=== PATIENT | male | born 1960 | race Caucasian/White ===

== ENCOUNTER 2016-09-21 06:25 | Day surgery (SDC) | payer MEDICAID ==
[2016-09-19 11:21] VITALS: BMI 31.1
[2016-09-21 06:44] VITALS: RESP 18; TEMP 96.4
[2016-09-21] MEDS ORDERED: LACTATED RINGERS 1,000 ML IV ONE (07:00)
[2016-09-21] MEDS ORDERED: LIDOCAINE 1% 20 ML VIAL (10MG/ML) FOR IV START INTRADERMA ONE (07:00)
[2016-09-21] MEDS ORDERED: IOHEXOL 180 MG/ML 1 ML ML ONE (07:15)
[2016-09-21] MEDS ORDERED: fentaNYL (PF) 50 MCG/ML 2 ML AMP ONE (07:15)
[2016-09-21] MEDS ORDERED: MIDAZOLAM 2 MG/2 ML VIAL ONE (07:15)
[2016-09-21] MEDS ORDERED: TRIAMCINOLONE ACETONIDE 40 MG/ML 1 ML VIAL ONE (07:15)
[2016-09-21] MEDS ORDERED: LACTATED RINGERS 1,000 ML IV SCH (07:30)
[2016-09-21] MEDS ORDERED: IV FLUID CONTINUATION 1,000 ML IV ONE (07:44)
[2016-09-21 08:14] VITALS: BP 130/84; PULSE 64
--- NOTE | 2016-09-21 09:02 | P.PCN ---
Date of Procedure: 09/21/16 Anesthesia: MAC Surgeon: David Penn Pathology: none sent Condition: stable Disposition: PACU Description of Procedure: PREOPERATIVE DIAGNOSIS: 1-Lumbar radiculitis. POSTOPERATIVE DIAGNOSIS: 1-Lumbar radiculitis. PROCEDURE 1. Lumbar epidural steroid injection under fluoroscopic guidance at the L5-S1 level. 2. Lumbar epidurogram. ANESTHESIA: Local with 1% lidocaine; IV sedation with Versed/fentanyl. EBL: Minimal PROCEDURE INDICATION: The patient with low back pain and radiculitis symptoms unresponsive to conservative treatment. Fluoroscopy was used to optimize visualization of the needle placement and to maximize safety. Patient presents for LESI #2 in series today, no use of blood thinners. PROCEDURE DESCRIPTION / TECHNIQUE: The patient was seen and identified in the preoperative area. Risks, benefits, complications, and alternatives were discussed with the patient, including but not limited to bleeding, infection, nerve damage, allergic reactions to medications, and incomplete pain relief. The patient agreed to proceed with the procedure and signed the consent after all questions were answered. IV was started, and vital signs were stable. Patient was taken to the OR and time out was completed to confirm patient position, procedure, laterality of pain, and allergies. The patient was placed in the prone position on procedure table and a pillow was placed under the abdomen to reduce lumbar lordosis. The lumbosacral area was prepped and draped in the usual sterile fashion. Critical pause was taken. Vital signs were closely monitored during the procedure. Conscious sedation was used during the procedure to decrease patients anxiety. Using anterior-posterior fluoroscopy, the L5-S1 interlaminar space was identified and the skin over this site was marked and then infiltrated with 1% lidocaine subcutaneously in a left paramedian fashion. Subsequently, a 20-gauge 3.5" Tuohy epidural needle was inserted and advanced toward the epidural space using the Loss of resistance technique and guided by AP and lateral fluoroscopy. The correct needle position in the epidural space was verified with the injection of 2 mL of the water soluble contrast dye Omnipaque 300 contrast and observing an excellent epidurogram with the epidural spread of the dye, after negative aspiration for blood and CSF and in the absence of paresthesias. Again after negative aspiration, a 8 ml mixture containing 80 mg of Kenalog and 4 ml of preservative free Normal Saline, and 2 ml of preservative free lidocaine 1% solution was injected and a washout of epidurogram was seen. Needle was withdrawn intact, skin was cleansed, and bandages were applied. COMPLICATIONS: None COMMENTS: DISPOSITION / PLANS: The patient was placed in a supine position and transferred to the recovery area in a stable condition for observation. There was no evidence of lower extremity motor or sensory deficit after the procedure. Patient was discharged from the recovery room after meeting discharge criteria. Home discharge instructions were given to the patient by the staff. The patient was reexamined prior to discharge. The patient will schedule a follow up LESI in 8-12 weeks.
--- NOTE | 2016-09-21 09:20 | FL ---
EXAMINATION TYPE: FL guided pain mgmt statistic DATE OF EXAM: 09/21/2016 7:33 AM COMPARISON: NONE HISTORY: Back pain Fluoroscopy support supplied to the referring clinician. See dictated report from anesthesia, 6 seco nds fluoroscopy time, 2 intraoperative C-arm images document the procedure
== END 2016-09-21 08:22 | disposition home or self-care (01) ==
LOC: ORPAIN 06:25
PROVIDERS: ATTEND Anesthesiology
DX: G89.29 Other chronic pain (principal); M54.16 Radiculopathy, lumbar region; F41.9 Anxiety disorder, unspecified; Z79.82 Long term (current) use of aspirin; Z79.1 Long term (current) use of non-steroidal anti-inflammatories (NSAID); Z79.899 Other long term (current) drug therapy
CPT/HCPCS: 62323; J2250; J3301; Q9965; J3010

== ENCOUNTER → 2016-11-07 | Outpatient (CLI) | payer MEDICAID ==
[2016-11-07 08:12] LABS: EKG EKG PERFORMED
[2016-11-07 08:35] LABS: Basophils # (A) 0.1 k/uL (0-0.2); Basophils % (A) 1 %; CH 29.7; CHCM 34.2; Eosinophils # (A) 0.2 k/uL (0-0.7); Eosinophils % (A) 3 %; HDW 2.75; HGB 15.9 gm/dL (13.0-17.5); Luc # (Auto) 0.16; Luc % (Auto) 2; Lymphocytes # (A) 1.4 k/uL (1.0-4.8); Lymphocytes % (A) 21 %; MCH 28.9 pg (25.0-35.0); MCHC 33.1 g/dL (31.0-37.0); MCV 87.1 fL (80.0-100.0); Mean Platelet Volume 6.2; Monocytes # (A) 0.6 k/uL (0-1.0); Monocytes % (A) 8 %; Neutrophils # (A) 4.6 k/uL (1.3-7.7); Neutrophils % (A) 65 %; RBC 5.51 m/uL (4.30-5.90); WBC (Perox) 6.92
[2016-11-07 09:19] LABS: Hemoglobin A1C 5.1 % (4.2-6.1)
--- NOTE | 2016-11-07 09:24 | XR ---
EXAMINATION TYPE: XR chest 2V DATE OF EXAM: 11/07/2016 8:22 AM COMPARISON: NONE TECHNIQUE: PA and lateral views submitted. HISTORY: Presurgical FINDINGS: The lungs are clear and there is no pneumothorax, pleural effusion, or focal pneumonia. Arthropathy of the shoulders noted. IMPRESSION: 1. No acute process.
[2016-11-07 11:14] LABS: ALT 38 U/L (21-72); AST 27 U/L (17-59); Alkaline Phosphatase 55 U/L (38-126); Anion Gap 10 mmol/L; Blood Urea Nitrogen 17 mg/dL (9-20); Calcium 9.9 mg/dL (8.4-10.2); Carbon Dioxide 25 mmol/L (22-30); Chloride 106 mmol/L (98-107); Cholesterol 229 mg/dL (<200); Glucose 111 mg/dL (74-99); HDL Cholesterol 37 mg/dL (40-60); Non-African American GFR(MDRD) >60 (>60 ml/min/1.73 sqM); Potassium 4.6 mmol/L (3.5-5.1); Sodium 141 mmol/L (137-145); Total Bilirubin 0.6 mg/dL (0.2-1.3); Triglycerides 231 mg/dL (<150)
[2016-11-07 11:35] LABS: Prostate Specific Antigen 1.14 ng/mL (0.00-4.00)
== END | disposition home or self-care (01) ==
LOC: LABWHC1 07:46
PROVIDERS: ATTEND Internal Medicine Geriatric Medicine
DX: R05 Cough (principal); R00.1 Bradycardia, unspecified; N40.0 Benign prostatic hyperplasia without lower urinary tract symptoms; E78.00 Pure hypercholesterolemia, unspecified; E66.8 Other obesity
CPT/HCPCS: 36415; 71020; 80053; 80061; 83036; 84153; 84439; 84443; 85025; 93005

== ENCOUNTER → 2016-11-16 | Outpatient (CLI) | payer MEDICAID ==
[2016-11-16 08:30] LABS: Appearance,Urine Clear (Clear); Bilirubin,Urine Negative (Negative); Glucose,Urine (UA) Negative (Negative); Ketones,Urine Negative (Negative); Leukocyte Esterase,Urine Negative (Negative); Nitrite,Urine Negative (Negative); PH, Urine 5.5 (5.0-8.0); Protein,Urine Negative (Negative); Specific Gravity,Urine 1.018 (1.001-1.035); UA Billing (MACRO vs. MICRO) CHEM; Urobilinogen,Urine <2.0 mg/dL (<2.0)
[2016-11-16 08:31] LABS: Basophils # (A) 0.1 k/uL (0-0.2); Basophils % (A) 1 %; CH 29.6; CHCM 33.4; Eosinophils # (A) 0.3 k/uL (0-0.7); Eosinophils % (A) 4 %; HCT 47.7 % (39.0-53.0); HDW 2.71; HGB 15.3 gm/dL (13.0-17.5); Luc # (Auto) 0.16; Luc % (Auto) 3; Lymphocytes # (A) 1.2 k/uL (1.0-4.8); Lymphocytes % (A) 19 %; MCH 28.6 pg (25.0-35.0); MCHC 32.1 g/dL (31.0-37.0); Mean Platelet Volume 6.3; Monocytes # (A) 0.5 k/uL (0-1.0); Monocytes % (A) 7 %; Neutrophils # (A) 4.2 k/uL (1.3-7.7); Neutrophils % (A) 66 %; RBC 5.36 m/uL (4.30-5.90); RDW 13.1 % (11.5-15.5); WBC 6.4 k/uL (3.8-10.6)
[2016-11-16 08:47] LABS: INR 1.1 (<1.1); Partial Thromboplastin Time 23.7 sec (22.0-30.0); Prothrombin Time 10.8 sec (9.0-12.0)
[2016-11-16 09:12] LABS: Anion Gap 11 mmol/L; Blood Urea Nitrogen 16 mg/dL (9-20); Carbon Dioxide 24 mmol/L (22-30); Chloride 107 mmol/L (98-107); Non-African American GFR(MDRD) >60 (>60 ml/min/1.73 sqM); Potassium 4.7 mmol/L (3.5-5.1); Sodium 142 mmol/L (137-145)
== END ==
LOC: LABWHC1 07:45
PROVIDERS: ATTEND Specialist
DX: M48.06 Spinal stenosis, lumbar region (principal); M51.36 Other intervertebral disc degeneration, lumbar region
CPT/HCPCS: 36415; 80051; 81003; 82565; 84520; 85025; 85610; 85730; 87070

== ENCOUNTER → 2017-08-31 | Outpatient (CLI) | payer MEDICAID ==
--- NOTE | 2017-08-31 17:54 | CT ---
EXAMINATION TYPE: CT chest wo con DATE OF EXAM: 08/31/2017 COMPARISON: Chest radiograph dated 11/07/2016 HISTORY: Chronic cough CT DLP: 992.3 mGycm. Automated Exposure Control for Dose Reduction was Utilized. TECHNIQUE: CT scan of the thorax is performed without IV contrast in the supine and prone positions per the high-resolution protocol.. FINDINGS: LUNGS: There are moderate centrilobular and paraseptal emphysematous changes. Reticular pattern of th e anterior right upper lobe is seen as interstitial thickening. Evaluation for pulmonary nodule is smith boptimal given the noncontiguous slices. No evidence of pulmonary mass. Minimal bibasilar subsegmenta l atelectasis is noted that is dependent in both supine and prone positions. No peribronchial cuffing or bronchiectasis is present. Tracheobronchial tree is patent. No focal cons olidation, pleural effusion or pneumothorax. No air trapping is noted. On the prone imaging basilar r eticular patchy and early honeycombing is identified posteriorly and nondependently suggesting early fibrosis. MEDIASTINUM: Lack of IV contrast is noted to limit evaluation for mediastinal and especially hilar ad enopathy. The main pulmonary artery is mildly enlarged measuring 3.1 cm, which can be seen in pulmona ry arterial hypertension. Mild coronary artery calcifications are present of the left circumflex and left main as well as left anterior descending coronary arteries. There are no definitive greater than 1 cm hilar or mediastinal lymph nodes. No cardiomegaly or pericardial effusion is seen. OTHER: Multiple low attenuated hepatic lesions are seen that are fluid attenuated and likely represen t hepatic cysts but are incompletely characterized. The thyroid gland is grossly enlarged with subste rnal extension. Evaluation of nodules is suboptimal on this exam. Osseous structures appear grossly i ntact with mild degenerative changes of the thoracic spine. IMPRESSION: 1. Moderate centrilobular and paraseptal emphysematous changes with findings suggestive of early fibr osis. 2. No focal consolidation, pleural effusion or pneumothorax. Evaluation for pulmonary nodule is limit ed given the exam technique. 3. Multiple probable hepatic cysts, fluid attenuated. 4. Mild enlargement of the main pulmonary artery that may clinically correlate with pulmonary arteria l hypertension. 5. Mild coronary artery calcifications, a marker for coronary artery disease.
== END | disposition home or self-care (01) ==
LOC: RADCTMAIN 16:05
PROVIDERS: ATTEND Internal Medicine Geriatric Medicine
DX: J43.2 Centrilobular emphysema (principal); I77.89 Other specified disorders of arteries and arterioles; I25.10 Atherosclerotic heart disease of native coronary artery without angina pectoris
CPT/HCPCS: 71250

== ENCOUNTER → 2017-09-13 | Outpatient (CLI) | payer MEDICAID ==
--- NOTE | 2017-09-13 11:16 | ECHOF ---
Referral Reason:J84.10 Pulmonary fibrosis MEASUREMENTS -------- HEIGHT: 182.9 cm WEIGHT: 106.6 kg BP: 126/75 IVSd: 1.3 cm (0.6 - 1.1) LVIDd: 5.1 cm (3.9 - 5.3) LVPWd: 1.5 cm (0.6 - 1.1) IVSs: 2.3 cm LVIDs: 2.1 cm LVPWs: 1.7 cm LAESV Index (A-L): 16.61 ml/m Ao Diam: 3.3 cm (2.0 - 3.7) AV Cusp: 2.4 cm (1.5 - 2.6) LA Diam: 3.7 cm (2.7 - 3.8) MV EXCURSION: 14.230 mm (> 18.000) MV EF SLOPE: 108 mm/s (70 - 150) EPSS: 0.7 cm MV E Ramirez: 0.68 m/s MV DecT: 200 ms MV A Ramirez: 0.56 m/s MV E/A Ratio: 1.22 RAP: 5.00 mmHg RVSP: 8.72 mmHg FINDINGS -------- Sinus rhythm. This was a technically good study. The left ventricular size is normal. There is mild concentric left ventricular hypertrophy. Overa ll left ventricular systolic function is normal with, an EF between 55 - 60 %. The right ventricle is normal in size and function. The left atrium is normal in size. The right atrium is normal in size. The aortic valve is trileaflet, and appears structurally normal. No aortic stenosis or regurgitation. There is trace mitral regurgitation. Trace tricuspid regurgitation present. The right ventricular systolic pressure, as measured by Dopp ler, is 8.72mmHg. Pulmonic valve appears structurally normal. The aortic root size is normal. Normal inferior vena cava with normal inspiratory collapse consistent with estimated right atrial pre ssure of 5 mmHg. The pericardium is normal. CONCLUSIONS -------- 1. Sinus rhythm. 2. This was a technically good study. 3. The left ventricular size is normal. 4. There is mild concentric left ventricular hypertrophy. 5. Overall left ventricular systolic function is normal with, an EF between 55 - 60 %. 6. The right ventricle is normal in size and function. 7. The left atrium is normal in size. 8. The right atrium is normal in size. 9. The aortic valve is trileaflet, and appears structurally normal. No aortic stenosis or regurgitati on. 10. There is trace mitral regurgitation. 11. Trace tricuspid regurgitation present. 12. The right ventricular systolic pressure, as measured by Doppler, is 8.72mmHg. 13. Pulmonic valve appears structurally normal. 14. The aortic root size is normal. 15. Normal inferior vena cava with normal inspiratory collapse consistent with estimated right atrial pressure of 5 mmHg. 16. The pericardium is normal. CURATOR OF PHOTOGRAPHY AND PRINTS: Karen Rashid RDCS
== END ==
LOC: RADECHMAIN 08:20
PROVIDERS: ATTEND Internal Medicine Geriatric Medicine
DX: I51.7 Cardiomegaly (principal)
CPT/HCPCS: 93306

== ENCOUNTER → 2017-10-15 | Outpatient (CLI) | payer MEDICAID ==
--- NOTE | 2017-10-15 11:30 | ECHOS ---
STRESS ECHOCARDIOGRAM INDICATIONS: Physical. MEDICATIONS: Aspirin. BASELINE HEART RATE: 83 BASELINE BLOOD PRESSURE: 108/51 MAXIMUM HEART RATE: 152 MAXIMUM BLOOD PRESSURE: 169/85 85% MPHR: 139 100% MPHR: 164 METS: 9.7 MAXIMUM STAGE REACHED: 3 TOTAL EXERCISE TIME: 8:00 CLINICAL INFORMATION: Baseline rhythm is a sinus mechanism, rate of 83, normal axis, intervals. normal echocardiogram. Baseline blood pressure 108/51 mmHg. Patient exercised on Hector protocol for 8 minutes, reaching a peak rate of 152 beats per minute which is equal to 92% of maximum predicted heart rate. Peak blood pressure 169/85 mmHg. Test was terminated due to fatigue. There were no chest pains and electrocardiographic monitoring revealed no evidence of diagnostic ischemic ST deviation. Occasional PVCs were noted. FINDINGS: Baseline echocardiogram revealed a normal wall thickening and motion. At peak exercise, there was normal wall motion and augmentation with no hypokinesis or dyskinesis. CONCLUSION: 1. Average exercise tolerance with normal electrocardiographic response to exercise and occasional premature ventricular contractions. 2. Normal stress echocardiogram with no evidence of stress-induced ischemia. MMODL / IJN: [id number] /
== END | disposition home or self-care (01) ==
LOC: RADNMMAIN 09:06
PROVIDERS: ATTEND Internal Medicine Geriatric Medicine
DX: I49.3 Ventricular premature depolarization (principal)
CPT/HCPCS: 93017; 93350

== ENCOUNTER → 2017-11-20 | Outpatient (CLI) | payer MEDICAID ==
--- NOTE | 2017-11-20 15:28 | XR ---
EXAMINATION TYPE: XR chest 2V DATE OF EXAM: 11/20/2017 COMPARISON: Prior chest x-ray 11/07/[address] 08/31/2017 HISTORY: Pulmonary fibrosis, annual physical TECHNIQUE: Frontal and lateral views of the chest are obtained. FINDINGS: Deviated trachea is again noted, mass effect noted as on previous exam. No evident airspac e disease, pneumothorax, or pleural effusion. Cardiomediastinal silhouette, pulmonary vascularity and rivka are stable. Prominent lung volumes are compatible with underlying COPD. IMPRESSION: No acute cardiopulmonary process. Substernal goiter. Emphysema.
== END | disposition home or self-care (01) ==
LOC: RADXRMAIN 12:29
PROVIDERS: ATTEND Internal Medicine Geriatric Medicine
DX: J43.9 Emphysema, unspecified (principal)
CPT/HCPCS: 71046

== ENCOUNTER 2018-11-04 11:26 | Emergency (ER) | payer MEDICAID ==
[2018-11-04 11:39] VITALS: RESP 18; TEMP 97.8
[2018-11-04] MEDS ORDERED: predniSONE 50 MG TAB PO STA (11:59)
[2018-11-04] MEDS ORDERED: KETOROLAC 60 MG/2 ML VIAL IM STA (11:59)
--- NOTE | 2018-11-04 12:32 | XR ---
EXAMINATION TYPE: XR lumbar spine 2 or 3V DATE OF EXAM: 11/04/2018 CLINICAL HISTORY: Low back pain after shoveling TECHNIQUE: Frontal and lateral images of the lumbar spine are obtained. COMPARISON: None FINDINGS: There are 5 lumbar type vertebral bodies identified. There is a dextroscoliotic curvature of the lumbar spine. Surgical fusion of the L3-L5 vertebral bodies is noted. There is a compression d eformity of the L4 vertebral body redemonstrated from the prior MRI 09/30/2015 with approximately 75% vertebral body height loss. The lumbar spine shows satisfactory alignment without evidence of acute f racture or dislocation. Vertebral body heights and disk space heights are within normal limits. Degen erative disc disease is also noted at T11-T12, partially visualized. The overlying soft tissue appea rs unremarkable. IMPRESSION: Chronic, degenerative and postsurgical changes of the lumbar spine. No acute fracture or dislocation is seen in the lumbar spine. Dextroscoliosis is also noted.
--- NOTE | 2018-11-04 12:43 | ED ---
General Adult HPI - General Chief complaint: Back Pain/Injury Stated complaint: back pain Time Seen by Provider: 11/04/18 11:42 Source: patient, RN notes reviewed, old records reviewed Mode of arrival: ambulatory Limitations: no limitations - History of Present Illness Initial comments: 58-year-old male patient past medical history of traumatic back injury as a teenager, s/p laminectomy and hardware fixation approximately 2 years ago presents to ED with exacerbation of chronic back pain. Patient states that he' ll clear throughout weekend, shoveling small, working in his house. Patient states that he felt as if she overdid it, isn't expressing pain in his right paralumbar region. Patient states that this is typical for him, denies any new concerning symptoms. Patient denies any loss of bowel or bladder control, saddle anesthesias, paresthesia, pain radiating down legs, no lower extremity weakness. Patient denies all other complaints. Systemic: Pt denies fatigue, myalgia, fever/chills, rash. Pt denies weakness, night sweats, weight loss. Neuro: Pt denies headache, visual disturbances, syncope or pre-syncope. HEENT: Pt denies ocular discharge or irritation, otalgia, rhinorrhea, pharyngitis or notable lymphadenopathy. Cardiopulmonary: Pt denies chest pain, SOB, heart palpitations, dyspnea on exertion. Abdominal/GI: Pt denies abdominal pain, n/v/d. : Pt denies dysuria, burning w/ urination, frequency/urgency. Denies new onset urinary or bowel incontinence. MSK: Pt denies myalgia, loss of strength or function in extremities. Neuro: Pt denies new onset weakness, paresthesias. - Related Data Home Medications Medication Instructions Recorded Confirmed Aspirin [Adult Low Dose Aspirin EC] 81 mg PO DAILY 11/09/15 11/04/18 Naproxen Sodium [Aleve] 440 mg PO DAILY PRN 11/09/15 11/04/18 Previous Rx's Medication Instructions Recorded Ibuprofen [Motrin] 600 mg PO Q6HR PRN #40 day 11/04/18 predniSONE 50 mg PO DAILY #4 tab 11/04/18 Allergies Allergy/AdvReac Type Severity Reaction Status Date / Time No Known Allergies Allergy Verified 11/04/18 12:17 Review of Systems ROS Statement: Those systems with pertinent positive or pertinent negative responses have been documented in the HPI. ROS Other: All systems not noted in ROS Statement are negative. Past Medical History Past Medical History: Osteoarthritis (OA) Additional Past Medical History / Comment(s): Hx back pain History of Any Multi-Drug Resistant Organisms: None Reported Past Surgical History: Orthopedic Surgery Additional Past Surgical History / Comment(s): Colonoscopy, RT KNEE SCOPE, PAIN CLINIC INJECTIONS Past Anesthesia/Blood Transfusion Reactions: No Reported Reaction, Family History of Problems w/ Anesthesia Additional Past Anesthesia/Blood Transfusion Reaction / Comment(s): States mother's heart stopped during a surgery she had. Past Psychological History: No Psychological Hx Reported Smoking Status: Former smoker Past Alcohol Use History: Occasional Past Drug Use History: None Reported - Past Family History Mother Family Medical History: No Reported History General Exam - General Exam Comments Initial Comments: Constitutional: NAD, AOX3, Pt has pleasant affect. HEENT: NC/AT, trachea midline, neck supple, no lymphadenopathy. Posterior pharynx non erythematous, without exudates. External ears appear normal, without discharge. Mucous membranes moist. Eyes PERRLA, EOM intact. There is no scleral icterus. No pallor noted. Cardiopulmonary: RRR, no murmurs, rubs or gallops, no JVD noted. Lungs CTAB in anterior and posterior garcia. No peripheral edema. Abdominal exam: Abdomen soft and non-distended. Abdomen non-tender to palpation in all 4 quadrants. Bowel sounds active in LLQ. No hepatosplenomegaly. No ecchymosis Neuro: CN II-XII grossly intact. No nuchal rigidity. MSK: Right paralumbar region mildly tender to palpation. Right straight leg raise positive. 5 out of 5 strength in psoas and quadriceps muscles. 2 out of 4 reflexes patellar and Achilles. Patient ambulatory without. No posterior calf tenderness bilaterally, homans sign negative bilaterally. Posterior tibialis and radial pulse +2 bilaterally. Sensation intact in upper and lower extremities. Full active ROM in upper and lower extremities, 5/5 stregnth. Limitations: no limitations Course Vital Signs 11/04/18 11/04/18 11:36 13:01 Temperature 97.8 F Pulse Rate 73 105 H Respiratory 18 Rate Blood Pressure 156/90 169/94 O2 Sat by Pulse 98 Oximetry Medical Decision Making - Medical Decision Making 58-year-old male patient past medical history of traumatic back injury as a teenager, s/p laminectomy and hardware fixation approximately 2 years ago presents to ED with exacerbation of chronic back pain. Patient states that he' ll clear throughout weekend, shoveling small, working in his house. Patient states that he felt as if she overdid it, isn't expressing pain in his right paralumbar region. Patient states that this is typical for him, denies any new concerning symptoms. Patient denies any loss of bowel or bladder control, saddle anesthesias, paresthesia, pain radiating down legs, no lower extremity weakness. Patient denies all other complaints. Patient vital signs stable, afebrile. Physical exam displayed: Right paralumbar region mildly tender to palpation. Right straight leg raise positive. 5 out of 5 strength in psoas and quadriceps muscles. 2 out of 4 reflexes patellar and Achilles. Patient ambulatory without. Plain film of the lumbar spine displayed chronic degenerative and post surgical changes lumbar spine. No acute fracture dislocation seen. These findings were explained to patient at length, The patient verbalizes understanding. Patient pain well-controlled with Toradol. Pt administered prednisone in ED. Pt to prednisone for 4 additional days, will use ibuprofen as needed for pain / inflammation. Patient to follow-up with PCP and orthopedic surgeon 1-2 days for continued evaluation. Case discussed with Dr. Feliciano. Disposition Clinical Impression: Chronic back pain, Lumbar back pain Disposition: HOME SELF-CARE Condition: Stable Instructions (If sedation given, give patient instructions): Acute Low Back Pain (ED), Chronic Back Pain (ED) Additional Instructions: Patient to adhere to previously discussed treatment plan and will take medication(s) as directed. Patient to follow up with PCP in 1-2 days. Patient to return to ED if symptoms do not improve. This follow up with primary care provider and surgeon in 1-2 days. Please return to ER if new signs symptoms develop or if condition worsens in any way. Prescriptions: Ibuprofen [Motrin] 600 mg PO Q6HR PRN #40 day PRN Reason: Pain predniSONE 50 mg PO DAILY #4 tab Is patient prescribed a controlled substance at d/c from ED?: No Referrals: Jesus Alberto Goncalves MD [Primary Care Provider] - 1-2 days
[2018-11-04 13:04] VITALS: BP 169/94; PULSE 105
== END 2018-11-04 13:05 | disposition home or self-care (01) ==
LOC: EC 11:26
DX: M54.5 Low back pain (principal); G89.29 Other chronic pain; M47.816 Spondylosis without myelopathy or radiculopathy, lumbar region; M19.90 Unspecified osteoarthritis, unspecified site; Z87.891 Personal history of nicotine dependence; Z79.82 Long term (current) use of aspirin; Z87.828 Personal history of other (healed) physical injury and trauma; Z96.698 Presence of other orthopedic joint implants
CPT/HCPCS: 99284; 96372; 72100; J1885; J7512

== ENCOUNTER → 2018-12-17 | Outpatient (CLI) | payer MEDICAID ==
--- NOTE | 2018-12-17 09:50 | XR ---
EXAM TYPE: LUMBAR SPINE X RAY SERIES COMPARISON: 11/04/2018 HISTORY: Post arthrodesis TECHNIQUE: 7 views are submitted including flexion and extension lateral views. FINDINGS: Postsurgical changes involving levels L3-L5 appears stable. Compression deformity of L4 is unchanged. Multilevel degenerative disc disease and hypertrophic changes are noted. Suspect foraminal encroachm ent L4-5 and L5-S1. Alignment appears stable in flexion and extension views. IMPRESSION: 1. Postsurgical changes are stable. Alignment appears stable in flexion and extension views.
== END | disposition home or self-care (01) ==
LOC: RADXRMAIN 09:15
PROVIDERS: ATTEND Specialist
DX: Z47.89 Encounter for other orthopedic aftercare (principal); Z98.1 Arthrodesis status
CPT/HCPCS: 72114

== ENCOUNTER → 2020-09-13 | Outpatient (CLI) | payer MEDICAID ==
--- NOTE | 2020-09-13 13:00 | MR ---
EXAMINATION TYPE: MR knee RT wo con DATE OF EXAM: 09/13/2020 COMPARISON: Outside radiographs 10/18/2019 HISTORY: 59-year-old male with right knee pain TECHNIQUE: Multiplanar, multisequence imaging of the right knee is performed without IV contrast. FINDINGS: ACL, PCL, MCL, and LCL complex are intact. Large irregular oblique tears involve the posterior horn and body of the medial meniscus. There is sl ight extrusion to the body of the medial meniscus. Mild superficial irregular cartilage loss along th e medial compartment. Areas a high-grade chondral defect along the posterior peripheral aspect of the medial femoral condyle measuring 7 mm wide and 8 mm AP. Marginal spurring is present. Cystic lesion within the posterior aspect of the tibial plateau near the posterior root of the medial meniscus measuring 1.5 cm likely intraosseous ganglion cyst. Lateral meniscus appears intact. Small areas of mild to moderate irregular cartilage loss along the m id weightbearing aspect of the lateral compartment. Marginal spurring is present. There is degenerative spurring in the patellofemoral compartment. Moderate irregular cartilage loss a long the lateral trochlear facet and mild along the lateral patellar facet. Some edema within the suprapatellar fat pad. Extensor mechanism is intact. Nonspecific mild anterior soft tissue swelling. Small joint effusion may be physiologic. There is trace early Auguste's cyst cyst formation with trace 6 mm of fluid extending between the semimembranosus and medial head gastrocnemius. Normal popliteal artery anatomy and muscle bulk. No suspicious bone marrow replacement. IMPRESSION: 1. Large irregular oblique tears involving the posterior horn and body of the medial meniscus. Overal l mild degenerative change within the medial compartment but with an 8 x 7 mm high-grade chondral def ect along the posterior peripheral aspect of the medial femoral condyle. 2. Mild to moderate patellofemoral compartmental osteoarthrosis with greatest degree of irregular car tilage loss along the lateral trochlear facet. 3. Some edema in the suprapatellar fat pad. Findings may be seen in the setting of fat pad impingemen t syndrome. Clinically correlate.
== END | disposition home or self-care (01) ==
LOC: RADMRIMAIN 11:06
PROVIDERS: ATTEND Orthopaedic Surgery
DX: S83.241A Other tear of medial meniscus, current injury, right knee, initial encounter (principal); M17.11 Unilateral primary osteoarthritis, right knee

== ENCOUNTER → 2020-09-29 | Outpatient (CLI) | payer MEDICAID ==
[2020-09-29 10:12] LABS: Basophils # (A) 0.1 k/uL (0-0.2); Basophils % (A) 1 %; Eosinophils # (A) 0.3 k/uL (0-0.7); Eosinophils % (A) 4 %; HCT 48.4 % (39.0-53.0); HGB 16.4 gm/dL (13.0-17.5); Lymphocytes # (A) 1.5 k/uL (1.0-4.8); Lymphocytes % (A) 19 %; MCH 29.5 pg (25.0-35.0); MCHC 33.9 g/dL (31.0-37.0); Mean Platelet Volume 6.5; Monocytes # (A) 0.7 k/uL (0-1.0); Monocytes % (A) 8 %; Neutrophils # (A) 5.6 k/uL (1.3-7.7); Neutrophils % (A) 68 %; Platelet Count 332 k/uL (150-450); RBC 5.56 m/uL (4.30-5.90); RDW 12.8 % (11.5-15.5); WBC 8.3 k/uL (3.8-10.6)
== END | disposition home or self-care (01) ==
LOC: LABPAT 09:34
PROVIDERS: ATTEND Orthopaedic Surgery
DX: Z01.812 Encounter for preprocedural laboratory examination (principal); M23.91 Unspecified internal derangement of right knee
CPT/HCPCS: 36415; 80051; 85025

== ENCOUNTER → 2020-10-29 | Outpatient (CLI) | payer MEDICAID, MEDICARE ==
[2020-10-29 11:50] LABS: Basophils # (A) 0.1 k/uL (0-0.2); Basophils % (A) 0 %; Eosinophils # (A) 0.2 k/uL (0-0.7); Eosinophils % (A) 2 %; HCT 48.9 % (39.0-53.0); HGB 16.6 gm/dL (13.0-17.5); Lymphocytes % (A) 10 %; MCH 29.3 pg (25.0-35.0); MCHC 33.8 g/dL (31.0-37.0); MCV 86.7 fL (80.0-100.0); Mean Platelet Volume 8.1; Monocytes # (A) 0.5 k/uL (0-1.0); Monocytes % (A) 5 %; Neutrophils # (A) 8.4 k/uL (1.3-7.7); Neutrophils % (A) 83 %; Platelet Count 324 k/uL (150-450); RBC 5.64 m/uL (4.30-5.90); RDW 12.9 % (11.5-15.5); WBC 10.1 k/uL (3.8-10.6)
[2020-10-29 12:03] LABS: Potassium 5.2 mmol/L (3.5-5.1)
== END | disposition home or self-care (01) ==
LOC: LABPAT 10:44
PROVIDERS: ATTEND Orthopaedic Surgery
DX: M23.91 Unspecified internal derangement of right knee (principal)
CPT/HCPCS: 36415; 80051; 85025

== ENCOUNTER 2020-11-01 12:36 | Emergency (ER) | payer MEDICARE, MEDICAID ==
[2020-11-01 12:50] VITALS: RESP 18; TEMP 98.2
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
--- NOTE | 2020-11-01 13:35 | XR ---
EXAMINATION TYPE: XR Hip LT and AP Pelvis DATE OF EXAM: 11/01/2020 COMPARISON: NONE HISTORY: Pelvic and increased left hip pain since fall injury 3 weeks ago. TECHNIQUE: A single AP view of the pelvis is obtained. Two views of the left hip are obtained. FINDINGS: There is no acute fracture/dislocation evident in the pelvis. The sacroiliac joints appea r symmetric and within normal limits. Pubic symphysis is intact. Mild acetabular spurring of both hi ps. Joint spaces show symmetric mild superior narrowing. The overlying soft tissue appears unremarkab le. Partial visualization of surgical change in the lumbar spine. Two views of left hip show no acute fracture or dislocation. No focal lytic or sclerotic lesion seen in the proximal left femur. The overlying soft tissue is unremarkable. IMPRESSION: There is no acute fracture or dislocation in the pelvis or left hip.
--- NOTE | 2020-11-01 13:40 | XR ---
Sacrum and coccyx HISTORY: Trauma and pain 3 views of the sacrum and coccyx Correlation to lumbar spine 12/17/2018 Postop changes are noted to the lumbar spine. The sacrum shows no fracture, alignment is thought to b e normal, coccyx shows a coarse is somewhat posteriorly angled which may be normal variant. Sacroilia c joints show stable symmetric appearance. Loss of disc height present at L5-S1. Suspect vacuum pheno aries may be present. There is associated spondylosis. IMPRESSION: Postop changes. Degenerative disc disease. Possible normal variant appearance at the sacr ococcygeal joint, follow-up MRI or bone scan could be performed for additional evaluation.
[2020-11-01 14:24] VITALS: BP 137/87; PULSE 80
== END 2020-11-01 14:24 | disposition home or self-care (01) ==
LOC: EC 12:36
DX: M25.552 Pain in left hip (principal); M19.90 Unspecified osteoarthritis, unspecified site; W00.0XXA Fall on same level due to ice and snow, initial encounter
CPT/HCPCS: 72220; 73502; 99284

== ENCOUNTER 2020-11-11 09:14 | Day surgery (SDC) | payer MEDICARE, MEDICAID ==
--- NOTE | 2020-11-10 18:12 | HP ---
HISTORY AND PHYSICAL DATE OF SURGERY: 11/11/2020 Emanuel Squires is a 60-year-old gentleman seen with progressive right knee pain. Options for treatment were discussed with him. He elected to proceed with arthroscopy. Consent was obtained. PAST MEDICAL HISTORY: Noncontributory. SURGICAL HISTORY: Right knee arthroscopy, lumbar spine surgery. DAILY MEDICATIONS: Aspirin. ALLERGIES: NONE. SOCIAL HISTORY: Denies tobacco use. PHYSICAL EVALUATION OF THE RIGHT KNEE: His range of motion is zero to 130. He has a mild effusion present. He is tender along the medial joint line. There is a positive medial Ezio's. Ligaments are stable. Hip rotation without pain. Distal neurovascular exam intact. RADIOGRAPHS: Right knee radiographs revealed moderate medial compartment osteoarthritis. MRI right knee revealed medial meniscal tear and osteoarthritis. IMPRESSION: 1. Internal derangement of right knee with medial meniscal tear. 2. Right knee osteoarthritis. PLAN: Right knee arthroscopy with partial meniscectomy and debridement. MMODL / IJN: [id number] /
[~2020-11-11 09:14] MED LIST: DEXAMETHASONE SOD PHOSPHATE 4 MG/ML 1 ML VIAL IV ONE; LACTATED RINGERS 1,000 ML IV SCH; LIDOCAINE 1% (10MG/ML) FOR IV START INTRADERMA PRN; ONDANSETRON 4 MG/2 ML VIAL IVP ONE
[2020-11-11 09:56] VITALS: RESP 16
[2020-11-11] MEDS ORDERED: ONDANSETRON 4 MG/2 ML VIAL ONE (10:08)
[2020-11-11] MEDS ORDERED: BUPIVACAINE (PF) 0.25% 30 ML VIAL SQ ONE ×2 (10:22→11:02)
[2020-11-11] MEDS ORDERED: MIDAZOLAM 2 MG/2 ML VIAL ONE (10:28)
[2020-11-11] MEDS ORDERED: fentaNYL (PF) 50 MCG/ML 2 ML AMP ONE (10:28)
[2020-11-11] MEDS ORDERED: LIDOCAINE 1% INJ 10MG/ML (20 ML MDV) ONE (10:28)
[2020-11-11] MEDS ORDERED: KETOROLAC 15 MG/ML 1 ML VIAL ONE (10:28)
[2020-11-11] MEDS ORDERED: PROPOFOL 10 MG/ML 20 ML VIAL IV ONE (10:28)
[2020-11-11 11:17] VITALS: TEMP 98
--- NOTE | 2020-11-11 11:22 | P.OP ---
Date of Procedure: 11/11/20 Preoperative Diagnosis: Internal derangement right knee Postoperative Diagnosis: 1. Tear medial meniscus right knee 2. Grade 3 chondromalacia medial femoral condyle right knee 3. Grade 2 chondromalacia lateral femoral condyle right knee 4. Grade 3 chondromalacia patella right knee 5. Reactive synovitis medial, lateral and suprapatellar compartments right knee Procedure(s) Performed: 1. Arthroscopic partial medial meniscectomy right knee 2. Arthroscopic chondroplasty medial femoral condyle right knee 3. Arthroscopic chondroplasty lateral femoral condyle right knee 4. Arthroscopic chondroplasty patella right knee 5. Arthroscopic partial synovectomy medial, lateral and suprapatellar compartments right knee Anesthesia: GETA, local Surgeon: Darwin Lantigua Estimated Blood Loss (ml): 8 Pathology: none sent Condition: stable Disposition: PACU Indications for Procedure: 60-year-old gentleman seen with progressive right knee pain. After treatment options were discussed, he elected to proceed with arthroscopy. Operative Findings: See description of procedure Description of Procedure: Patient was taken to the operative suite. Patient underwent a general anesthetic by the department of anesthesia. Patient was given preoperative antibiotics. The right lower extremity was placed in a well-padded arthroscopic leg emnendez. The right leg was prepped and draped in the normal sterile orthopedic fashion. A lateral parapatellar and suprapatellar incision was made. Trochars were inserted. Arthroscopy was initiated. Suprapatellar pouch revealed diffuse thick reactive synovitis. The patellofemoral joint appeared to articulate congruently. There grade 3 chondromalacia the patella as well as the femoral sulcus with diffuse osteochondral tears present. The scope was guided into the medial gutter. No loose bodies or plica were identified The scope was then guided into the medial compartment. A medial parapatellar incision was made. Trocar inserted followed by probe. There was a complex tear involving the posterior horn of the medial meniscus which did extend into the midbody area. There were grade 3 chondromalacia changes of the medial femoral condyle diffusely along the entire weightbearing surface with osteochondral tears present. There was thick reactive synovitis anteriorly. I performed a partial medial meniscectomy getting down to stable meniscal tissue. I performed a chondroplasty of the medial femoral condyle getting down to stable osteochondral tissue. I performed a partial synovectomy decompressing the thick reactive synovitis anteriorly. The residual meniscus was not probed and found to be stable. The residual osteochondral surface of the femoral condyle was stable. There was good decompression of the synovitis anteriorly. Scope and probe were then guided into the intercondylar notch. Cruciates were identified, probed and found to be stable. The scope and probe were then guided into lateral compartment. There was some mild fraying midbody lateral meniscus. There were grade 2 and row malacia changes of the lateral femoral condyle on its weightbearing surface with some diffuse osteochondral fractures present. There was thick reactive synovitis anteriorly. I debrided that mild fraying of the meniscus. I performed a chondroplasty of the femoral condyle getting down to stable osteochondral tissue. I performed a partial synovectomy decompressing thick reactive synovitis. The residual osteochondral surface was stable. There was good decompression of the synovitis. The scope was in guided back into the suprapatellar compartment. I introduced a motorized shaver into the super patellar compartment. I debrided some piecemeal fragments of meniscus I encountered. I performed a chondroplasty of the patella getting down to stable osteochondral tissue. I performed a partial synovectomy decompressing thick reactive synovitis in the suprapatellar compartment. The shaver was removed. There was good decompression of the synovitis. The residual osteochondral surface of patella was stable. I took one more look around the entire knee, no residual debris. Instruments were now removed from the joint. The joint was infiltrated with .25% Marcaine. Steri-Strips were applied to the portal sites. Sterile dressings were applied. The patient was placed into a JIM hose. No tourniquet was utilized. The patient was awakened, transferred to a bed and taken to recovery stable satisfactory condition.
[2020-11-11] MEDS ORDERED: HYDROmorphone 0.5 MG/0.5 ML SYRINGE IVP ONE (11:28)
[2020-11-11 12:43] VITALS: BP 149/88; PULSE 88
== END 2020-11-11 12:43 | disposition home or self-care (01) ==
LOC: OR 09:14
PROVIDERS: ATTEND Orthopaedic Surgery
DX: S83.231A Complex tear of medial meniscus, current injury, right knee, initial encounter (principal); M22.41 Chondromalacia patellae, right knee; M65.861 Other synovitis and tenosynovitis, right lower leg; M17.11 Unilateral primary osteoarthritis, right knee; X58.XXXA Exposure to other specified factors, initial encounter
CPT/HCPCS: 29881; 29876; J2250; J1100; J0690; J2405; J2001; J3010; J1885; J2704; J1170

== ENCOUNTER → 2020-12-22 | Outpatient (CLI) | payer MEDICAID, MEDICARE ==
--- NOTE | 2020-12-22 15:06 | MR ---
EXAMINATION TYPE: MR hip LT wo con DATE OF EXAM: 12/22/2020 COMPARISON: Outside left hip x-ray 8 days ago. Pelvic and left hip x-ray November 01, 2020 HISTORY: Left hip pain, slip and fall injury mid October. Standard multiplanar, multisequence MRI departmental protocol Multiplanar, multisequence images of the pelvis focus on the left hip were acquired. FINDINGS: There is overall marked heterogeneity of the bone marrow signal intensity with areas of red marrow reconversion throughout pelvic structures and bilateral hips. There is partial visualization of artifact from surgical change in the lumbar spine with suspected moderate compression type fractur e of L4 level. The hip joint spaces are symmetric with [id number] superior joint space loss and mild acetabular spurring. There are small to tiny right greater than left hip joint effusions. Femor al head shapes are maintained bilaterally. No suspicious focal osseous edema. No serpiginous low T1 s ignal to suggest avascular necrosis. Mild fluid signal level greater trochanters bilaterally. No suspicious groin adenopathy or hernia bilaterally. Muscle bulk in the bilateral thighs is symmetri c and felt to within normal limits. No definitive suspicious labral tear given limitation of motion a rthrogram study. No suspicious bowel dilatation. Few diverticula in the sigmoid colon are present. Bladder appears wit hin normal limits. Prostate gland is upper limits of normal in size. IMPRESSION: [id number] degenerative changes in left hip fairly symmetric to the opposite right hip. No posttraumatic finding clearly identified. Mild bilateral greater trochanteric bursitis.
== END | disposition home or self-care (01) ==
LOC: RADMRIMAIN 12:51
PROVIDERS: ATTEND Orthopaedic Surgery
DX: M70.61 Trochanteric bursitis, right hip (principal); W01.0XXA Fall on same level from slipping, tripping and stumbling without subsequent striking against object, initial encounter

== ENCOUNTER 2021-02-25 06:33 | Day surgery (SDC) | payer MEDICAID, MEDICARE ==
[~2021-02-25 06:33] MED LIST changes: -DEXAMETHASONE SOD PHOSPHATE 4 MG/ML 1 ML VIAL IV ONE; -LACTATED RINGERS 1,000 ML IV SCH; -ONDANSETRON 4 MG/2 ML VIAL IVP ONE
[2021-02-25 07:18] VITALS: TEMP 97.4
[2021-02-25] MEDS: LACTATED RINGERS 1,000 ML IV SCH ×2 (07:18→07:20)
[2021-02-25] MEDS ORDERED: PROPOFOL 10 MG/ML 20 ML VIAL IV ONE (07:21)
[2021-02-25] MEDS ORDERED: LIDOCAINE 1% INJ 10MG/ML (20 ML MDV) ONE (07:21)
--- NOTE | 2021-02-25 07:39 | P.PCN ---
Date of Procedure: 02/25/21 Procedure(s) Performed: BRIEF HISTORY: Patient is a 60-year-old pleasant white male scheduled for an elective colonoscopy as a part of screening for colorectal neoplasia. PROCEDURE PERFORMED: Colonoscopy with biopsy. PREOPERATIVE DIAGNOSIS: Screening for colon cancer. IV sedation per Anesthesia. PROCEDURE: After informed consent was obtained, the patient, was brought into the endoscopy unit. IV sedation was administered by Anesthesia under continuous monitoring. Digital rectal examination was normal. Initially the Olympus CF-160 flexible video colonoscope was then inserted in the rectum, gradually advanced into the cecum without any difficulty. Careful examination was performed as the scope was gradually being withdrawn. Ileocecal valve and the appendiceal orifice were visualized and appeared normal. Prep was excellent. The cecum there was a 3 mm polyp that was removed by cold biopsy. Mucosa of the cecum, ascending colon, transverse colon, descending colon, sigmoid colon, and rectum appeared normal. Retroflexion was performed in the rectum and grade 2 internal hemorrhoids were seen. The patient tolerated the procedure well. IMPRESSION: 3 mm cecal polyp status post removal by cold biopsy Grade 2 internal hemorrhoids RECOMMENDATIONS: Findings of this examination were discussed with the patient as well as his family. He was advised to follow with the biopsy doesn't the biopsy shows an adenoma he can have a repeat coloscopy in 5 years.
[2021-02-25 07:45] VITALS: RESP 16
[2021-02-25 07:57] VITALS: BP 128/86; PULSE 67
== END 2021-02-25 08:25 | disposition home or self-care (01) ==
LOC: ORWHC2ENDO 06:33
PROVIDERS: ATTEND Internal Medicine Gastroenterology
DX: Z12.11 Encounter for screening for malignant neoplasm of colon (principal); K64.8 Other hemorrhoids; D12.0 Benign neoplasm of cecum; Z79.82 Long term (current) use of aspirin; Z79.899 Other long term (current) drug therapy
CPT/HCPCS: 88305; 45380; J2001; J2704

== ENCOUNTER → 2021-10-07 | Outpatient (CLI) | payer MEDICAID, MEDICARE ==
[2021-10-07 15:24] LABS: Basophils # (A) 0.06 X 10*3/uL (0.00-0.10); Basophils % (A) 0.7 %; Eosinophils # (A) 0.25 X 10*3/uL (0.04-0.35); Eosinophils % (A) 3.1 %; HCT 46.5 % (39.6-50.0); HGB 15.1 g/dL (13.0-17.0); Lymphocytes # (A) 1.56 X 10*3/uL (0.90-5.00); Lymphocytes % (A) 19.4 %; MCH 28.6 pg (27.0-32.0); MCHC 32.5 g/dL (32.0-37.0); MCV 88.1 fL (80.0-97.0); Monocytes # (A) 0.79 X 10*3/uL (0.20-1.00); Monocytes % (A) 9.8 %; Neutrophils # (A) 5.32 X 10*3/uL (1.80-7.70); Neutrophils % (A) 66.3 %; Platelet Count 288 X 10*3/uL (140-440); RBC 5.28 X 10*6/uL (4.40-5.60); WBC 8.04 X 10*3/uL (4.50-10.00)
[2021-10-07 16:03] LABS: ALT 44 U/L (10-49); AST 35 U/L (14-35); African American GFR (CKD) 96.5 (60.0-200.0); Albumin 4.5 g/dL (3.8-4.9); Albumin/Globulin Ratio 1.79 (1.60-3.17); Alkaline Phosphatase 83 U/L (41-126); BUN/Creat Ratio 14.56 Ratio (12.00-20.00); Blood Urea Nitrogen 14.3 mg/dL (9.0-27.0); Carbon Dioxide 24.1 mmol/L (20.0-27.5); Chloride 104 mmol/L (96-109); Chol/HDL Ratio 6.46 Ratio; Globulin 2.5 g/dL (1.6-3.3); Glucose 93 mg/dL (70-110); LDL Cholesterol,Calculated 176.2 mg/dL (0.0-131.0); Non-African American GFR(CKD) 83.3 (60.0-200.0); Potassium 4.6 mmol/L (3.5-5.5); Sodium 140 mmol/L (135-145)
== END | disposition home or self-care (01) ==
LOC: LABWHC1 09:38
PROVIDERS: ATTEND Internal Medicine Geriatric Medicine
DX: Z00.00 Encounter for general adult medical examination without abnormal findings (principal); R73.9 Hyperglycemia, unspecified; E78.2 Mixed hyperlipidemia; N40.0 Benign prostatic hyperplasia without lower urinary tract symptoms
CPT/HCPCS: 36415; 80053; 80061; 83036; 84153; 84443; 85025

== ENCOUNTER 2021-12-26 05:00 | Emergency (ER) | payer MEDICAID, MEDICARE ==
[2021-12-26 05:09] VITALS: RESP 18; TEMP 97.7
[2021-12-26 05:29] VITALS: BP 138/90; PULSE 66
[2021-12-26] MEDS ORDERED: ALBUTEROL NEBULIZED 2.5 MG/3 ML INHALATION STA (06:37)
--- NOTE | 2021-12-26 14:59 | XR ---
EXAMINATION TYPE: XR chest 2V DATE OF EXAM: 12/26/2021 COMPARISON: 11/20/2017 TECHNIQUE: PA and lateral views submitted. HISTORY: Shortness of breath FINDINGS: The lungs are clear and there is no pneumothorax, pleural effusion, or focal pneumonia. There is sof t tissue fullness in the left upper mediastinum with deviation the trachea stable from 2018. Most lik lorenzo in the basis of enlarged thyroid. Hyperinflation suggests COPD. Hypertrophic and degenerative alison nges of the spine. IMPRESSION: 1. COPD with tracheal deviation likely on the basis of enlarged thyroid stable from 2018.
--- NOTE | 2021-12-26 15:00 | CT ---
EXAMINATION TYPE: CT chest w con DATE OF EXAM: 12/26/2021 COMPARISON: HISTORY: evaluate trachial deviation CT DLP: 653.7 mGycm Automated exposure control for dose reduction was used. CONTRAST: CT scan of the chest is performed with IV Contrast, patient injected with 100 mL of Isovue 300. FINDINGS: LUNGS: Multiple left upper lobe pulmonary nodules with tree in bud appearance could be inflammatory/p ostinflammatory in nature metastatic disease is not excluded. Moderate paraseptal emphysema. The evelyn arturo of the lungs are clear. 4.7 mm pulmonary nodule right lateral sulcus image 60 of 70 additional 5 mm left lower lobe pulmonary nodule. MEDIASTINUM: The left thyroid lobe is heterogenous and enlarged without evidence of internal calcific ations and measures 6.0 x 4.4 cm with substernal extension. There is tracheal deviation from left to right. Sonographic correlation advised. The right thyroid lobe appears to be of normal size and appea tyler. Thoracic aorta is of normal caliber. The heart is not enlarged. UPPER ABDOMEN: There appears to be an exophytic solid nodule left upper pole right kidney which is pa rtially imaged. Consider outpatient CT for further characterization. Multiple hypoattenuating hepatic lesions compatible with cysts. OTHER: No additional significant abnormality is seen. IMPRESSION: 1. Tracheal deviation is secondary to left thyroid enlargement and mass with substernal extension. Co rrelate with ultrasound and thyroid function testing. 2. Partially imaged solid appearing lesion upper pole right kidney. Malignancy is not excluded. Outpa tient contrast-enhanced CT recommended to exclude malignancy. 3.Multiple left upper lobe pulmonary nodules with tree in bud appearance could be inflammatory/postin flammatory in nature metastatic disease is not excluded. Follow-up in 3-4 months advised.
== END 2021-12-26 09:26 | disposition home or self-care (01) ==
LOC: EC 05:00
DX: J06.9 Acute upper respiratory infection, unspecified (principal); Z20.822 Contact with and (suspected) exposure to COVID-19
CPT/HCPCS: 87635; 71046; 71260; 99285; Q9967

== ENCOUNTER → 2022-01-13 | Outpatient (CLI) | payer MEDICARE ==
--- NOTE | 2022-01-15 20:06 | US ---
EXAMINATION TYPE: US thyroid st tissue head/neck DATE OF EXAM: 01/13/2022 COMPARISON: NONE CLINICAL HISTORY: 61-year-old male E04.1 Thyroid nodule. TECHNIQUE: Multiple sonographic images of the thyroid gland are obtained. FINDINGS: GLAND SIZE: Right Lobe: 5.1 x 1.7 x 2.5 cm Overall Parenchyma: homogenous Left Lobe: 7.2 x 3.5 x 3.2 cm Overall Parenchyma: heterogeneous Isthmus Thickness: 0.1 cm NODULES RIGHT: # of nodules measured on right: 0 LEFT: # of nodules measured on left: 1. 2.5 X 1.3 x 2.6 cm, lower, solid or almost completely solid, isoechoic nodule, which is wider th an tall, with lobulated or irregular margins, without echogenic foci. 2. 4.6 X 3.7 x 4.2 cm, lower, solid or almost completely solid, isoechoic nodule, which is wider t zamora tall, with lobulated or irregular margins, without echogenic foci. Situated quite inferior, difficult to visualize in its entirety. ISTHMUS: # of nodules measured in the isthmus: 0 Bilateral neck scanned, no evidence of lymphadenopathy. IMPRESSION: Two large, left lobe TR3 thyroid nodules. These measure 2.6 cm and 4.6 cm. Both meet criteria for FNA .
--- NOTE | 2022-01-15 20:47 | CT ---
EXAMINATION TYPE: CT abdomen pelvis w con CT DLP: 1713.50 mGycm, Automated exposure control for dose reduction was used. DATE OF EXAM: 01/13/2022 6:43 PM COMPARISON: None. CLINICAL INDICATION:Male, 61 years old with history of E04.1 Thyroid nodule, N28.9 Disorder ureter/ki dney; abnormal/disorder of kidney/ureter TECHNIQUE: Standard CT of the abdomen and pelvis following the administration of 100 cc of Isovue 3 00 IV contrast material and oral contrast. Coronal and sagittal reformats were performed. FINDINGS: LOWER CHEST: Right middle lobe pulmonary nodules measuring up to 4 mm. (Series 4 image 10 and image 3 ) ABDOMEN LIVER: Diffusely hypoattenuating parenchyma. Scattered cysts are present throughout the parenchyma. GALLBLADDER AND BILE DUCTS: Layering increased densities suggesting biliary sludge/small stones. PANCREAS: Unremarkable. SPLEEN: Unremarkable. ADRENAL GLANDS: Unremarkable. KIDNEYS AND URETERS: Right: There is a solid enhancing right upper pole renal mass measuring 22 x 21 x 17 mm which is at l east 50% exophytic. No hydronephrosis. No renal calculus. Left: No evidence of mass or renal calculus. No hydronephrosis. PELVIS BLADDER: Unremarkable REPRODUCTIVE: Prostate is enlarged in size measuring 5.7 cm in transverse dimension. ABDOMEN & PELVIS STOMACH AND BOWEL: No evidence of bowel obstruction. PERITONEUM: No evidence of pneumoperitoneum or free fluid. VASCULATURE: No evidence of aortic aneurysm. Scattered mild atherosclerosis of the arterial vasculatu re. MUSCULOSKELETAL: No acute osseous abnormalities. Old left inferior pubic ramus fractures suggested. F ixation hardware extending from L3 to L5 intact. Compression deformity of L4 is present with at least percent height loss on the left aspect. Retropulsion of the L4 vertebrae of 5 mm. LYMPH NODES: No gross evidence for lymphadenopathy. SOFT TISSUE/ABDOMINAL WALL: Bilateral fatty changes to the inguinal canals. IMPRESSION: 1. Right upper pole solid renal mass measuring up to 22 mm concerning for renal cell carcinoma until proven otherwise. 2. Biliary sludge/cholelithiasis. 3. Prostatomegaly correlate with serum PSA.
== END | disposition home or self-care (01) ==
LOC: RADUSWWP 16:14
PROVIDERS: ATTEND Internal Medicine Geriatric Medicine
DX: E04.1 Nontoxic single thyroid nodule (principal); N28.9 Disorder of kidney and ureter, unspecified
CPT/HCPCS: 76536; 74177; Q9967

== ENCOUNTER → 2022-02-17 | Outpatient (CLI) | payer MEDICARE ==
--- NOTE | 2022-02-17 10:48 | CT ---
EXAMINATION TYPE: CT chest w con DATE OF EXAM: 02/17/2022 COMPARISON: 12/27/2019, 08/31/2017 HISTORY: 61-year-old male R91.1, Solitary pulmonary nodule TECHNIQUE: Contiguous axial scanning of the chest after the administration of 100 mL of Isovue 300. Coronal/sagittal reconstructions performed. CT DLP: 5689.8mGycm. Automatic exposure control utilized for a dose reduction. FINDINGS: Heart normal size without pericardial effusion. 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 Bovine configuration to the aortic arch. No thoracic lymphadenopathy by CT size criteria. Redemonstrated marked goitrous enlargement particularly of the left lobe of thyroid gland with subste rnal extension and mass effect causing rightward deviation and mild narrowing of the trachea. There m ay be an underlying large nodule measuring at least 5.6 cm. Possible interval enlargement from 2017 b ut this masslike enlargement was present at that time as well. Moderate upper lung predominant centrilobular emphysema. Mild paraseptal emphysema. Mild dependent at electasis. Scattered 5 mm and smaller pulmonary nodules remain unchanged. Larger 7 mm ovoid nodule along the minor fissure anterior right mid lung remains unchanged. The extensive tree-in-bud opacities previously seen in the lingula has cleared. Scattered hepatic hypodensities are redemonstrated measuring up to 2.1 cm, likely benign cysts. Redemonstrated solid appearing, heterogeneously enhancing cortical lesion lateral pole right kidney m easuring 2.1 cm versus 1.7 cm on 12/26/2021. Only partially visualized at that time. Bones: Mild multilevel degenerative disc disease. IMPRESSION: 1. The previous lingular tree-in-bud infiltrates have cleared. A few scattered pulmonary nodules diogenes uring 7 mm and smaller remain unchanged. 1 year follow-up recommended to reassess. 2. COPD weight background moderate emphysema. 3. Suspicious for right kidney RCC measuring approximately 2.1 cm. Appropriate urology referral and m anagement advised. 4. Redemonstrated masslike enlargement of the left lobe of thyroid gland with substernal extension. P lease refer to thyroid ultrasound report and recommendations from 01/13/2022.
== END | disposition home or self-care (01) ==
LOC: RADCTMAIN 08:40
PROVIDERS: ATTEND Internal Medicine Geriatric Medicine
DX: R91.1 Solitary pulmonary nodule (principal); J43.9 Emphysema, unspecified
CPT/HCPCS: 71260; Q9967

== ENCOUNTER → 2022-07-05 | Outpatient (CLI) | payer MEDICARE ==
--- NOTE | 2022-07-05 13:22 | CT ---
EXAMINATION TYPE: CT chest w con DATE OF EXAM: 07/05/2022 COMPARISON: 02/17/2022 HISTORY: Solitary pulmonary nodule. CT DLP: 739 mGycm Automated exposure control for dose reduction was used. TECHNIQUE: CT scan of the chest is performed with IV Contrast, patient injected with 70ml mL of Isovue 300. MIP Images are created on CT scanner and reviewed. 3D reconstructed images are created on an independent workstation and reviewed. FINDINGS: LUNGS: Moderate centrilobular and paraseptal emphysematous changes are seen. Vague nodularity seen in the right upper lobe less apparent on today's exam. The nodularity seen in the left lower lobe stabl e and likely benign. Subpleural nodule in the anterior segment of the right upper lobe measuring 2 mm stable. Additional subsegmental changes are seen posteriorly felt to be most likely atelectasis No focal pneumonia, pleural effusion or pneumothorax. Mild interlobular septal knee noted posteriorly suggestive of pulmonary fibrosis. MEDIASTINUM: There are no greater than 1 cm hilar or mediastinal lymph nodes. No pericardial effusi on is seen. Mild coronary artery calcification distribution of the LAD noted. Aorta normal caliber m ild atherosclerotic changes. OTHER: Left of the thyroid gland appears to been resected. Correlate with surgical history. Persiste nt hypodensities in the liver (hepatic cyst. Incidental note made of Vee physis. Hypertrophic and d egenerative change of the spine. Small hiatal hernia. Abnormal attenuation involving the anterior mar gin of the right kidney. Stable nonspecific thickening of the posterior limb of the left adrenal glan d. IMPRESSION: 1. Vague 7 mm nodule right upper lobe has resolved. Additional vague areas of nodularity and 5 mm sub pleural nodularity stable. Suspect most likely the nodules previously described are benign. 2. Moderate to severe upper lobe emphysematous changes stable. An additional six-month follow-up coul d be obtained to confirm stability over the course of 2 year. 3. remains abnormal attenuation involving the anterior margin of the right kidney only partially incl uded in the [id number] likely at the site of prior solid appearing neoplasm. Correlate for previou s surgery. 4. Hepatic cysts. 5. Incidental note made of cholelithiasis.
== END | disposition home or self-care (01) ==
LOC: RADCTMAIN 12:21
PROVIDERS: ATTEND Internal Medicine Geriatric Medicine
DX: J43.9 Emphysema, unspecified (principal); K80.20 Calculus of gallbladder without cholecystitis without obstruction; K76.89 Other specified diseases of liver
CPT/HCPCS: 71260; Q9967

== ENCOUNTER → 2023-02-20 | Outpatient (CLI) | payer MEDICARE ==
--- NOTE | 2023-02-20 10:45 | CT ---
EXAMINATION TYPE: CT chest w con CT DLP: 484.2 mGycm, Automated exposure control for dose reduction was used. DATE OF EXAM: 02/20/2023 10:06 AM COMPARISON: CT 07/05/2022, 02/17/2022 08/31/2017 CT, CLINICAL INDICATION:Male, 62 years old with history of R91.8; PHH, lung nodule f/u TECHNIQUE: Multiple axial images were obtained through the chest. Sagittal and coronal reformats were created for review. Contrast used:100 mL of Isovue 300 with IV Contrast Oral contrast used: none. FINDINGS: LUNGS/ PLEURA: Centrilobular and paraseptal emphysema changes predominantly in the lung apices. Perip heral reticulation noted along the dependent portions of the lungs. Right lower lobe 5 mm pulmonary n odule AIRWAY: Patent and unremarkable. HEART: Size within normal limits. MEDIASTINUM: No gross evidence of adenopathy. VASCULATURE: No aortic aneurysm. No evidence for pulmonary arterial filling defect to suggest pulmon noah embolus. MUSCULOSKELETAL: No acute osseous abnormalities SOFT TISSUES/LYMPH NODES: Unremarkable. LOWER NECK: No significant findings. UPPER ABDOMEN: Diffuse low-attenuation to the liver. Scattered hypodensities likely representing cyst s. Layering gallstones in the gallbladder lumen. IMPRESSION: 1. No new or enlarging pulmonary nodules. 5 mm right lower lobe subpleural pulmonary nodule is uncha nged from 08/31/2017. Consider low-dose lung cancer screening yearly. 2. Moderate emphysema changes 3. Cholelithiasis. 4. Hepatic steatosis. 5. Probable simple hepatic cysts
== END | disposition home or self-care (01) ==
LOC: RADCTMAIN 09:42
PROVIDERS: ATTEND Internal Medicine
DX: J43.9 Emphysema, unspecified (principal); K80.20 Calculus of gallbladder without cholecystitis without obstruction; R91.8 Other nonspecific abnormal finding of lung field; K76.0 Fatty (change of) liver, not elsewhere classified
CPT/HCPCS: 71260; Q9967

== ENCOUNTER → 2023-11-26 | Outpatient (CLI) | payer MEDICARE ==
--- NOTE | 2023-11-26 22:05 | MR ---
EXAMINATION TYPE: MR knee LT wo con DATE OF EXAM: 11/26/2023 COMPARISON: None HISTORY: Left knee pain especially with weight bearing, some swelling, x2 months TECHNIQUE: Multiplanar, multisequence imaging of the left knee is performed without IV contrast. FINDINGS: There is a small joint effusion and a small routine millimeter by 33 mm Auguste's cyst. There is a small contusion in the medial tibial plateau but no discrete fracture. There is a moderate strain of the medial collateral ligament. There is an oblique tear of the posteri or horn of the medial meniscus extending to the inferior surface of the meniscus. There is a small tear of the body of the lateral meniscus and a small para meniscal cyst. There is a mild strain of the lateral collateral ligament. The cruciate ligaments are intact. There is mild osteophytic change of the medial and lateral compartment of the knees as evidenced by m ild hypertrophic spurring of the margins. There is a subchondral cyst in the intercondylar region of the tibial plateau. IMPRESSION: 1. Small contusion of the medial tibial plateau without discrete fracture. 2. Small joint effusion and small Auguste cyst. 3. Strain of both the medial and lateral collateral ligaments. 4. Tears of both menisci as described above. 5. Mild osteoarthritic change of the medial lateral compartments.
== END | disposition home or self-care (01) ==
LOC: RADMRIMAIN 21:15
PROVIDERS: ATTEND Orthopaedic Surgery
DX: M17.0 Bilateral primary osteoarthritis of knee (principal); M25.462 Effusion, left knee; S83.242A Other tear of medial meniscus, current injury, left knee, initial encounter; M71.22 Synovial cyst of popliteal space [Baker], left knee; M23.642 Other spontaneous disruption of lateral collateral ligament of left knee; M23.632 Other spontaneous disruption of medial collateral ligament of left knee; M23.304 Other meniscus derangements, unspecified medial meniscus, left knee; M23.8X2 Other internal derangements of left knee; M23.301 Other meniscus derangements, unspecified lateral meniscus, left knee; X58.XXXA Exposure to other specified factors, initial encounter

== ENCOUNTER → 2024-02-26 | Outpatient (CLI) | payer MEDICARE ==
--- NOTE | 2024-02-26 10:49 | CTL ---
EXAMINATION TYPE: CT Low Dose Lung DATE OF EXAM ORDERED: 02/26/2024 HISTORY: . Low Dose CT Lung Screening CT DLP: 101.[address] CTDI: 2.6 mGy IV CONTRAST USED: None. SCREENING VISIT: First visit COMPARISON: CT chest dated 02/20/2023 TECHNIQUE: Low dose computed tomography scan was performed through the chest at 1 millimeter thick se ctions and reconstructed images in the coronal plane at [address] DIAGNOSTIC QUALITY: Satisfactory FINDINGS: LUNG NODULES: 4 mm lateral segment right middle lobe pulmonary nodule subpleural location image 212. LUNGS: COPD: Severity: Moderate emphysematous changes noted. Fibrosis: Severity:None Lymph nodes: None Other findings: None RIGHT PLEURAL SPACE: Effusion: None Calcification: None Thickening: None Pneumothorax: None LEFT PLEURAL SPACE: Effusion: None Calcification: None Thickening: None Pneumothorax: None HEART: Heart Size: Mildly enlarged Coronary calcification: Mild Pericardial effusion: None OTHER FINDINGS: Upper abdomen: No significant abnormality Bony thorax: Degenerative changes Supraclavicular region: No significant abnormalityOther: No significant abnormalityI IMPRESSION: No clinically significant nodules greater than [address] FOLLOW UP [address] CHEST RECOMMENDATION: Follow-up screening in one year CT LUNG RAD: LUNG RAD CATEGORY 2 benign appearance and/or behavior
== END | disposition home or self-care (01) ==
LOC: RADCTMAIN 10:22
PROVIDERS: ATTEND Internal Medicine
DX: Z12.2 Encounter for screening for malignant neoplasm of respiratory organs (principal); Z87.891 Personal history of nicotine dependence
CPT/HCPCS: 71271

== ENCOUNTER → 2024-05-21 | Outpatient (CLI) | payer MEDICARE ==
--- NOTE | 2024-05-21 10:10 | US ---
EXAMINATION TYPE: US thyroid st tissue head/neck DATE OF EXAM: 05/21/2024 COMPARISON: CLINICAL INDICATION: Male, 63 years old with history of E04.1 THYROID NODULE; Hx left thyroid nodules . Per patient, cancer with left thyroidectomy x 1.5 years ago. Not on thyroid meds. GLAND SIZE: Right Lobe: 4.7 x 2.5 x 2.5 cm Overall Parenchyma: homogeneous Left Lobe: Surgically absent Isthmus Thickness: 0.3 cm NODULES RIGHT: # of nodules measured on right: 0 LEFT: Left thyroid lobe surgically absent. # of nodules measured on left: 0 ISTHMUS: # of nodules measured in the isthmus: 0 Bilateral neck scanned, no evidence of lymphadenopathy. IMPRESSION: No suspicious thyroid nodules. Surgically absent left thyroid gland. No lymphadenopathy. [facility], , 05/21/2024 10:07 AM
== END | disposition home or self-care (01) ==
LOC: RADUSWWP 08:49
PROVIDERS: ATTEND Internal Medicine Geriatric Medicine
DX: E04.1 Nontoxic single thyroid nodule (principal)
CPT/HCPCS: 76536

== ENCOUNTER → 2025-02-09 | Outpatient (CLI) | payer MEDICARE ==
[2025-02-09 12:15] LABS: African American GFR (CKD) >90 (>60 ml/min/1.73 sqM); Blood Urea Nitrogen 19 mg/dL (9-20); Non-African American GFR(CKD) >90 (>60 ml/min/1.73 sqM)
--- NOTE | 2025-02-09 12:53 | CT ---
EXAMINATION TYPE: CT chest w con CT DLP: 652 mGycm, Automated exposure control for dose reduction was used. DATE OF EXAM: 02/09/2025 12:44 PM COMPARISON: CT low-dose lung 02/26/2024, CT chest 02/20/2023, 07/05/2022, 02/17/2022 CLINICAL INDICATION:Male, 64 years old with history of R91.1 SOLITARY LUNG NODULE; PHH, Lung nodule, hx of kidney cancer TECHNIQUE: Multiple axial images were obtained through the chest following the administration of 100 cc of Isovue 300. . Coronal reformats reviewed. FINDINGS: LUNGS/ PLEURA: Mild to moderate centrilobular and paraseptal emphysematous changes primarily within t he bilateral upper lobes. No pleural effusion, pneumothorax, or focal consolidation. Stable subpleur al right lower lobe 6 6 MRI lumbar pulmonary nodule when measured with similar technique. Mm pulmonar y nodule from multiple prior exams (series 4, image 55). No new or enlarging pulmonary nodule. AIRWAY: Patent and unremarkable.. HEART: Size within normal limits. . No pericardial effusion. No significant coronary artery calcifica tions. MEDIASTINUM: No evidence of adenopathy. VASCULATURE: No aortic aneurysm. MUSCULOSKELETAL: No acute osseous abnormalities SOFT TISSUES/LYMPH NODES: Unremarkable. LOWER NECK: Left thyroid lobe is surgically absent versus atrophic.. UPPER ABDOMEN: Diffuse low-attenuation to the liver parenchyma. Scattered cysts identified again with in the liver. IMPRESSION: 1. No acute thoracic process. 2. Stable right lower lobe 6 mm pulmonary nodule from multiple prior exams. Considered benign. No new or enlarging pulmonary nodules. 3. Mild to moderate emphysematous changes. 4. Hepatic steatosis. [facility], , 02/09/2025 12:51 PM
== END | disposition home or self-care (01) ==
LOC: RADCTMAIN 11:28
PROVIDERS: ATTEND Internal Medicine Geriatric Medicine
DX: J43.2 Centrilobular emphysema (principal); K76.0 Fatty (change of) liver, not elsewhere classified; R91.1 Solitary pulmonary nodule
CPT/HCPCS: 82565; 84520; 71260; 36415; Q9967